=== PATIENT | female | born 1985 | race Hispanic/Latino ===

== ENCOUNTER 2017-12-18 08:04 | Emergency (ER) | payer OTHER ==
[2017-12-18] MEDS ORDERED: Fluorescein 1 mg Ophthalmic Strip OD ONE (08:27)
[2017-12-18] MEDS ORDERED: Tetracaine 0.5% Ophth 2 ML BOTTLE OD STA (08:27)
[2017-12-18] MEDS ORDERED: Tobramycin/Dexamethasone (Tobradex) Opth Sol (2.5 ml) OD STA (08:27)
[2017-12-18 08:28] VITALS: O2SAT 98
--- NOTE | 2017-12-18 08:41 | ED PDOC ---
Arrival/HPI - General Chief Complaint: Eye Problem Time Seen by Provider: 12/18/17 08:20 - History of Present Illness Narrative History of Present Illness (Text): 12/18/17 08:37 Patient is a 32 year old feamle with no significant past medical history who presents to the Emergency department for right eye pain. Patient says she was playing with her niece yesterday when she accidentally got poked in the right eye by her finger. Patient says she felt like she had something stuck in her eye under her eyelid and when she woke up this morning she still had that feeling with the addition of swelling and erythema so she decided to come in and have it looked at. She feels as though her vision is blurry. She admits to feeling feverish last night but otherwise denies a complete ROS. Past Medical History - Past History Past History: No Previous - Infectious Disease Hx of Infectious Diseases: None - Reproductive Menopause: No - Psychiatric Hx Substance Use: No - Anesthesia Hx Anesthesia: No Family/Social History Family/Social History: No Known Family HX Smoking Status: Current Some Days Smoker Hx Alcohol Use: No Hx Substance Use: No Allergies/Home Meds Allergies/Adverse Reactions: Allergies No Known Allergies Allergy (Verified 12/18/17 08:18) Review of Systems - Physician Review All systems were reviewed & negative as marked: Yes - Review of Systems Constitutional: Fevers (subjective) Eyes: Vision Changes, Eye Pain, Other (feeling of sand in the right eye). absent: Photophobia ENT: Normal Respiratory: Normal. absent: SOB Cardiovascular: Normal. absent: Chest Pain, Palpitations Gastrointestinal: Normal. absent: Abdominal Pain, Constipation, Diarrhea, Nausea, Vomiting Skin: Other (erythme around right eye). absent: Rash, Pruritis Physical Exam Vital Signs Temp Pulse Resp BP Pulse Ox 12/18/17 08:13 99.1 F 88 18 108/70 98 Temperature: Afebrile Blood Pressure: Normal Pulse: Regular Respiratory Rate: Normal Appearance: Positive for: Well-Appearing, Non-Toxic, Comfortable Pain Distress: Moderate Mental Status: Positive for: Alert and Oriented X 3 - Systems Exam Head: Present: Normocephalic Pupils: Present: PERRL Extroacular Muscles: Present: EOMI (pain with upward gaze in the right eye) Conjunctiva: Present: Injected (right eye) Mouth: Present: Moist Mucous Membranes Nose (External): Present: Atraumatic Respiratory/Chest: Present: Clear to Auscultation, Good Air Exchange Cardiovascular: Present: Regular Rate and Rhythm, Normal S1, S2. No: Murmurs Abdomen: No: Tenderness, Distention Upper Extremity: Present: Normal Inspection Lower Extremity: Present: Normal Inspection Skin: Present: Warm, Dry, Erythematous (right eye). No: Rashes Medical Decision Making ED Course and Treatment: 12/18/17 08:53 Fluorescien eye stain done showing corneal abrasion of the right eye. Tobramycin eye drops applied after exam and patient instructed to continue with 3 drops per day for at least 1 week. Patient also instructed to protect eye until tetracaine wears off as she is at increased risk for injury with numb right eye. Reassessment Condition: Re-examined, Improved (eye numbed and symptoms gone) - Medication Orders Current Medication Orders: Discontinued Medications Fluorescein Sodium (Nrtgd-L-Pgktm A.T.) 1 mg OD ONCE ONE Stop: 12/18/17 08:28 Tetracaine HCl (Tetracaine 0.5% Ophth Soln) 2 drop OD STAT STA Stop: 12/18/17 08:28 Tobramycin/Dexamethasone (Tobradex Opht Susp) 0 ml OD STAT STA Stop: 12/18/17 08:28 - PA / SECURED ENTRANCE MONITOR / Resident Statement / has reviewed & agrees with the documentation as recorded. / has examined the patient and agrees with the treatment plan. Disposition/Present on Arrival - Present on Arrival Any Indicators Present on Arrival: No History of DVT/PE: No History of Uncontrolled Diabetes: No Urinary Catheter: No History of Decub. Ulcer: No History Surgical Site Infection Following: None - Disposition Have Diagnosis and Disposition been Completed?: Yes Diagnosis: Corneal abrasion Disposition: HOME/ ROUTINE Disposition Time: 09:00 Patient Plan: Discharge Condition: STABLE Discharge Instructions (ExitCare): Corneal Abrasion Additional Instructions: Please use Tobradex eye drops, 1 drop in right eye 3 times per day, for 7 days. Please use sunglasses for the next 24-48 hours to protect your eye, and use caution as your eye will be numb for a few hours after you leave the hospital, which puts you at increased risk for further injury to your eye. Please follow up with an broadcast operations director at your earliest convenience. Prescriptions: Dexamethasone/Tobramycin [Tobradex 0.1%-0.3% 2.5 Ml] 1 drop OD TID #1 bottle Referrals: Woody Washington MD [Staff Provider] - Follow up with primary Forms: [employer] ([place])
[2017-12-18 09:33] VITALS: PULSE 85; TEMP 98
[2017-12-18 09:38] VITALS: BP 127/82; RESP 18
== END 2017-12-18 09:34 | disposition home or self-care (01) ==
LOC: ED 08:04
DX: S05.01XA Injury of conjunctiva and corneal abrasion without foreign body, right eye, initial encounter (principal); W50.0XXA Accidental hit or strike by another person, initial encounter; F17.200 Nicotine dependence, unspecified, uncomplicated